=== PATIENT | female | born 1995 | race Caucasian/White ===

== ENCOUNTER 2018-03-28 09:17 | Emergency (ER) | payer MEDICAID ==
[~2018-03-28] VITALS: Ht 157.5 cm; Wt 59.0 kg
[2018-03-28] MEDS ORDERED: DEXAMETHASONE 10 MG/ML VIAL IM ONE (11:00)
[2018-03-28 11:40] VITALS: BP 110/77
== END 2018-03-28 12:02 | disposition home or self-care (01) ==
LOC: ER 09:44
DX: J02.0 Streptococcal pharyngitis (principal); F17.200 Nicotine dependence, unspecified, uncomplicated; F12.10 Cannabis abuse, uncomplicated
CPT/HCPCS: 96372; 99283; J1100